=== PATIENT | female | born 1970 | race Caucasian/White ===

== ENCOUNTER 2018-09-03 14:02 | Emergency (ER) | payer OTHER ==
[~2018-09-03] VITALS: Ht 170.2 cm; Wt 117.9 kg
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
--- NOTE | 2018-09-03 14:10 | NUR ---
PETROS GROVER AT BEDSIDE FOR MSE.
[2018-09-03] MEDS ORDERED: NEOMY/BACITRA/POLYMYXIN B OINT UD PACKET TP ONE ×2 (14:15→14:24)
[2018-09-03] MEDS ORDERED: TDAP DIPH,PERTUSS,TET VAC/PF 0.5 ML DISP.SYRIN IM ONE ×2 (14:15→14:24)
[2018-09-03] MEDS ORDERED: LIDOCAINE HCL 1% 20 ML VIAL TP ONE (14:15)
--- NOTE | 2018-09-03 14:26 | NUR ---
[employer] AT BEDSIDE.
[2018-09-03 15:24] VITALS: BP 142/88
--- NOTE | 2018-09-03 15:24 | NUR ---
Patient discharged to home in stable conditon. Written and verbal after care instructions given. Patient verbalizes understanding of instructions. ALL BELONGINGS W/ PT. PT SELF-AMBULATED W/O DIFFICULTY.
== END 2018-09-03 15:25 | disposition home or self-care (01) ==
LOC: ER 14:02
DX: S81.011A Laceration without foreign body, right knee, initial encounter (principal); Z88.0 Allergy status to penicillin; W18.39XA Other fall on same level, initial encounter; Y93.89 Activity, other specified; Y92.89 Other specified places as the place of occurrence of the external cause; Y99.8 Other external cause status
CPT/HCPCS: 12004; 73564; 90471; 90715; 99283; J3490; A4217; A4663